=== PATIENT | female | born 1945 | race Caucasian/White ===

== ENCOUNTER → 2017-12-28 09:23 | Outpatient (CLI) | payer MEDICARE, SELFPAY ==
[2017-12-28 10:03] LABS: Basophils % 0.3 % (0.1-2.0); Eosinophils # 0.4 K/mm3 (0.0-0.4); Eosinophils % 3.7 % (0.1-12.0); Hematocrit 39.1 % (37.0-47.0); Hemoglobin 12.1 g/dL (12.2-16.2); Lymphocytes # 1.8 K/mm3 (0.7-4.5); Lymphocytes % 16.1 K/mm3 (10-50); Mean Corpuscular Hemoglobin 27.3 pg (27.0-31.2); Mean Corpuscular Volume 88.1 fl (81-99); Mean Platelet Volume 8.4 fl (7.4-10.4); Monocytes # 0.6 K/mm3 (0.1-1.0); Monocytes % 5.1 % (1.7-9.3); Neutrophils # 8.2 K/mm3 (1.8-7.8); Neutrophils % 74.8 % (37.0-80.0); Platelet Count 286 K/mm3 (142-424); Red Blood Count 4.44 M/mm3 (4.20-5.40); Red Cell Distribution Width 14.8 % (11.5-17.5); White Blood Count 10.9 K/mm3 (4.8-10.8)
[2017-12-28 10:34] LABS: Alanine Aminotransferase 35 U/L (12-78); Albumin Level 3.3 gm/dL (3.4-5.0); Albumin/Globulin Ratio 0.8 (1.1-1.8); Alkaline Phosphatase 70 U/L (46-116); Aspartate Amino Transferase 20 U/L (15-37); Bilirubin,Total 0.6 mg/dL (0.2-1.0); Blood Urea Nitrogen 8 mg/dL (7-18); Calcium 9.4 mg/dL (8.5-10.1); Carbon Dioxide 28 mmol/L (21.0-32.0); Chloride 101 mmol/L (98-107); Chol/HDL Ratio 2.8 (1-3.5); Cholesterol 148 mg/dL (140-200); Creatinine,Serum 0.69 mg/dL (0.55-1.02); Estimated Glomerular Filt Rate 84 ml/min (>60); Free Thyroxine Index 4.7 ug/dL (5.93-13.13); GFR (African American) 101 ML/MIN (>60); Globulin 3.9 gm/dl (1.3-3.2); Glucose 157 mg/dL (74-106); HDL Cholesterol 53 mg/dL (29-89); LDL Cholesterol 73 mg/dL (0-130); Sodium 137 mmol/L (136-145); Total Protein,Serum 7.2 gm/dL (6.4-8.2); Triglycerides 108 mg/dL (30-200); Triiodothryronine (T3) Uptake 36 % (31-39); VLDL Cholesterol 22 mg/dL (0-40)
[2017-12-28 10:58] LABS: Hemoglobin A1C 7.9 % (0.0-7.0)
[2017-12-30 09:45] LABS: Vitamin D 25 Hydroxy 42.8 ng/mL (30.0-100.0)
== END ==
PROVIDERS: PCP Internal Medicine Adolescent Medicine; Visit Provider Internal Medicine Adolescent Medicine
DX: E11.9 Type 2 diabetes mellitus without complications (principal); E78.5 Hyperlipidemia, unspecified; E03.9 Hypothyroidism, unspecified; E55.9 Vitamin D deficiency, unspecified; Z86.2 Personal history of diseases of the blood and blood-forming organs and certain disorders involving the immune mechanism
CPT/HCPCS: 36415; 80053; 80061; 82652; 83036; 84436; 84443; 84479; 85025

== ENCOUNTER → 2018-05-25 09:30 | Outpatient (CLI) | payer MEDICARE, SELFPAY ==
--- NOTE | 2018-05-25 09:34 | MM_ITS ---
MM Dig screening mamm BI w/CAD CAD Screening COMPARISON: Digital mammograms with CAD 03/10/2017 and 03/03/2015 INDICATION: There is no personal or family history of breast cancer. There has been previous biopsy right breast for benign disease. TECHNIQUE: Standard CC and MLO images were obtained. R2 CAD reviewed. FINDINGS: Minimal scattered fibroglandular densities are seen in the central portions of both breasts. There are multiple scattered benign-appearing microcalcifications and a few macrocalcifications in each breast most of which appear to be due to secretory disease. Stable minimal post biopsy scarring seen upper central portion right breast. There is a mole marker left breast. There is no suspicious lesion and is no suspicious cluster of microcalcifications. IMPRESSION: Fibrofatty parenchyma with no suspicious lesion seen BI-RADS Category: 2 Benign Finding(s) RECOMMENDED FOLLOW-UP: 1YR - 1 YEAR FOLLOW-UP (A letter has been sent to the patient regarding results of the study.)
== END ==
PROVIDERS: PCP Internal Medicine Adolescent Medicine; Visit Provider Internal Medicine Adolescent Medicine
DX: Z12.31 Encounter for screening mammogram for malignant neoplasm of breast (principal)
CPT/HCPCS: 77067

== ENCOUNTER → 2019-03-05 06:00 | Outpatient (CLI) | payer MEDICARE, SELFPAY ==
[2019-03-07 12:35] LABS: Occult Blood,Stool Negative (Negative)
== END ==
PROVIDERS: Visit Provider Internal Medicine Gastroenterology
DX: D50.9 Iron deficiency anemia, unspecified (principal)
CPT/HCPCS: 82272; G0328

== ENCOUNTER → 2019-03-06 06:30 | Outpatient (CLI) | payer MEDICARE, SELFPAY ==
[2019-03-07 12:35] LABS: Occult Blood,Stool Negative (Negative)
== END ==
PROVIDERS: Visit Provider Internal Medicine Gastroenterology
DX: D50.9 Iron deficiency anemia, unspecified (principal)
CPT/HCPCS: 82272; G0328

== ENCOUNTER → 2019-03-07 11:29 | Outpatient (CLI) | payer MEDICARE, SELFPAY ==
[2019-03-07 12:35] LABS: Occult Blood,Stool Negative (Negative)
== END ==
PROVIDERS: Visit Provider Internal Medicine Gastroenterology
DX: D50.9 Iron deficiency anemia, unspecified (principal)
CPT/HCPCS: 82272; G0328

== ENCOUNTER → 2019-05-22 10:36 | Outpatient (CLI) | payer MEDICARE, SELFPAY ==
--- NOTE | 2019-05-22 10:42 | MM_ITS ---
PROCEDURE: MM DIG SCREENING MAMM BI W/CAD CLINICAL INDICATION: SCREENING There is no personal or family history of breast cancer. There has been a previous biopsy right breast for benign disease. COMPARISON: [facility] DIG MAMM-SCREEN [facility] from 03/03/2015 [facility] DIG MAMM-SCREEN [facility] W/CAD from 03/10/2017 [facility] MM Dig screening mamm BI w/CAD from 05/25/2018 TECHNIQUE: Standard CC and MLO images and 3D Tomosynthesis was obtained. R2 CAD reviewed. FINDINGS: Scattered fibroglandular densities are seen in the central portions of both breast on a background of fatty breast parenchyma. There are scattered benign-appearing micro and macrocalcifications in each breast many of which are secondary to secretory disease. There is a mole marker left breast. There is no suspicious lesion and no suspicious microcalcifications. IMPRESSION: Fibrofatty parenchyma with no suspicious lesions seen BI-RAD Category: 2 Benign Finding(s) FOLLOW-UP: 1YR 1 Year Follow-up (A letter has been sent to the patient regarding results of the study.) Dictated by: Dr. Gary Johns MD 05/24/2019 11:[address] Gary Johns MD in [place] 05/24/2019 11:43
== END ==
PROVIDERS: PCP Internal Medicine Adolescent Medicine; Visit Provider Internal Medicine Adolescent Medicine
DX: Z12.31 Encounter for screening mammogram for malignant neoplasm of breast (principal)
CPT/HCPCS: 77063; 77067

== ENCOUNTER 2019-09-10 23:56 | Emergency (ER) | payer MEDICARE, SELFPAY ==
[2019-09-11 00:12] VITALS: BP 187/91; PULSE 86; RESP 17; TEMP 36.6; O2SAT 96; BMI 51.2
--- NOTE | 2019-09-11 00:19 | XR_ITS ---
PROCEDURE: XR SHOULDER LT MIN 2V CLINICAL INDICATION: fall Posttraumatic pain COMPARISON: No exams were available for comparison FINDINGS: There is a nondisplaced comminuted fracture involving the humeral head and non displaced transverse fracture of the humeral neck medially. No evidence of shoulder dislocation.. There is subacromial stenosis with slightly high-riding humeral head which may be seen with rotator cuff tear. MRI may confirm IMPRESSION: Nondisplaced fracture of the humeral head and neck Dictated by: Layo Thompson MD 09/11/2019 06:34 Electronically signed by Layo Thompson MD in [facility] 09/11/2019 06:34
--- NOTE | 2019-09-11 00:19 | XR_ITS ---
PROCEDURE: XR HUMERUS LT CLINICAL INDICATION: fall Posttraumatic pain COMPARISON: No exams were available for comparison FINDINGS: There is a nondisplaced fracture of the humeral neck and humeral head better seen on the shoulder film. The remaining humerus has an unremarkable appearance. IMPRESSION: Humeral head neck fracture nondisplaced Dictated by: Layo Thompson MD 09/11/2019 06:35 Electronically signed by Layo Thompson MD in [facility] 09/11/2019 06:35
[2019-09-11 01:08] VITALS: BP 144/73; PULSE 82; RESP 18; O2SAT 92
[2019-09-11 01:10] LABS: Basophils # 0.1 K/mm3 (0-0.2); Basophils % 0.5 % (0.1-2.0); Eosinophils # 0.4 K/mm3 (0.0-0.4); Eosinophils % 2.1 % (0.1-12.0); Hematocrit 34.1 % (37.0-47.0); Hemoglobin 10.7 g/dL (12.2-16.2); Lymphocytes # 1.7 K/mm3 (0.7-4.5); Lymphocytes % 8.7 % (10-50); Mean Corpuscular HGB Conc 31.3 g/dL (31.8-35.4); Mean Corpuscular Hemoglobin 26.6 pg (27.0-31.2); Mean Platelet Volume 8.3 fl (7.4-10.4); Monocytes # 0.8 K/mm3 (0.1-1.0); Monocytes % 4.2 % (1.7-9.3); Neutrophils # 16.6 K/mm3 (1.8-7.8); Neutrophils % 84.5 % (37.0-80.0); Platelet Count 338 K/mm3 (142-424); Red Blood Count 4.02 M/mm3 (4.20-5.40); Red Cell Distribution Width 15.4 % (11.5-17.5); White Blood Count 19.6 K/mm3 (4.8-10.8)
--- NOTE | 2019-09-11 01:10 | CT_ITS ---
PROCEDURE: CT SHOULDER LT WO CON CLINICAL HISTORY: confirm Xray. possible fracture Pain following injury, possible fracture on radiograph COMPARISON: XR SHOULDER LT MIN 2V from 09/11/2019 XR HUMERUS LT from 09/11/2019 TECHNIQUE: Axial images obtained with sagittal and coronal reformats. All CT scans at the facility use one or more dose reduction, viz: automated exposure control, ma/kV adjustment per patient size (including targeted exams where dose is matched to indication, i.e. head), or iterative reconstruction technique. FINDINGS: There is a nondisplaced mildly impacted comminuted fracture involving the humeral head at the greater tubercle and posterior neck of the humerus. No displacement. The humeral head is located. No other significant anomalies. IMPRESSION: Nondisplaced minimally impacted comminuted fracture of the humeral head and posterior aspect of the humeral neck Dictated by: Layo Thompson MD 09/11/2019 05:40 Electronically signed by Layo Thompson MD in [place] 09/11/2019 05:40
[2019-09-11 01:13] LABS: Alanine Aminotransferase 20 U/L (12-78); Albumin Level 4.4 g/dl (3.5-5.0); Albumin/Globulin Ratio 1.3 (1.1-1.8); Alkaline Phosphatase 86 U/L (38-126); Anion Gap 15.5 mEq/L (5-15); Aspartate Amino Transferase 28 U/L (14-36); Bilirubin,Total 0.3 mg/dl (0.2-1.3); Blood Urea Nitrogen 12 mg/dl (7-17); Calcium 9.4 mg/dl (8.4-10.2); Carbon Dioxide 24 mmol/L (22.0-30.0); Chloride 94 mmol/L (98-107); Creatinine Clearance Estimated 44 mL/min (50-200); Estimated Glomerular Filt Rate 82 ml/min (>60); GFR (African American) 99 ML/MIN (>60); Globulin 3.4 g/dL (1.3-3.2); Glucose 266 mg/dl (74-100); Potassium 4.5 mmoL/L (3.5-5.1); Sodium 129 mmol/L (136-145); Total Protein,Serum 7.8 g/dl (6.3-8.2)
[2019-09-11 01:15] LABS: MANUAL DIFFERENTIAL MANUAL DIFFERENTIAL (MANUAL DIFF)
[2019-09-11 01:36] LABS: Eosinophils % 4 % (0-3); Lymphocytes % 8 % (10-50); Monocytes % 1 % (2-9); Neutrophils % 87 % (42-76); Ovalocytes 1+; Platelet Estimate Normal; Total Cells Counted 100
[2019-09-11 01:37] LABS: Stomatocytes 1+
--- NOTE | 2019-09-11 01:58 | HMH.EDUPEXT ---
ED Disposition Clinical Impression: Shoulder fracture, left Qualifiers: Encounter type: initial encounter Fracture type: closed Qualified Code(s): S42.92XA - Fracture of left shoulder girdle, part unspecified, initial encounter for closed fracture Disposition: Home, Self-Care Condition on Discharge: Good Instructions: DI for Shoulder Fracture Additional Instructions: call ortho and pcp in am Prescriptions: Hydrocod/Acet 5/325 mg [[place] 5/325mg tablet] 1 tab PO Q6HP PRN #7 tab PRN Reason: Moderate To Severe Pain Prescription Printed Referrals: Russell Ramos MD [Primary Care Provider] - Mercy Jones MD [Physician] - - Critical Care Critical Care Time: No Attestation: On 09/10/19, the high probability of a clinically significant, sudden or life threatening deterioration of the following system(s) required my full and direct attention, intervention and personal management. The time I documented below is in addition to time spent performing reported procedures but includes the following listed in this critical care notation. Medical Decision Making - Medical Records Medical records reviewed: Yes: I reviewed the patient's medical records. - Abhay Inquiry Pt receiving controlled substance: No Vital Signs: 09/11/19 00:12 09/11/19 01:08 Temperature 97.9 F Temperature Source Oral Pulse Rate [Right Brachial] 86 82 Respiratory Rate 17 18 Blood Pressure [Right Arm] 187/91 H 144/73 H Blood Pressure Mean [Right Arm] 123 96 Blood Pressure Source [Right Arm] Automatic Cuff Blood Pressure Position [Right Arm] Sitting 02 Sat by Pulse Oximetry 96 92 L Oxygen Delivery Method Room Air Room Air - Lab Data Lab results reviewed: Yes: I reviewed the patient's lab results. Lab Results 09/11/19 00:48: WBC 19.6 H, RBC 4.02 L, Hgb 10.7 L, Hct 34.1 L, MCV 85.0, MCH 26.6 L, MCHC 31.3 L, RDW 15.4, Plt Count 338, MPV 8.3, Neut % (Auto) 84.5 H, Lymph % (Auto) 8.7 L, [place] % (Auto) 4.2, Eos % (Auto) 2.1, Baso % (Auto) 0.5, Neut # (Auto) 16.6 H, Lymph # (Auto) 1.7, [place] # (Auto) 0.8, Eos # (Auto) 0.4, Baso # (Auto) 0.1, Total Counted 100, Neutrophils % (Manual) 87 H, Lymphocytes % (Manual) 8 L, Monocytes % (Manual) 1 L, Eosinophils % (Manual) 4 H, Platelet Estimate Normal, Ovalocytes 1+, Stomatocytes 1+ 09/11/19 00:48: Sodium 129 L, Potassium 4.5, Chloride 94 L, Carbon Dioxide 24, Anion Gap 15.5 H, BUN 12, Creatinine 0.70, Estimated Creat Clear 44, Estimated GFR 82, Est GFR ( Amer) 99, Glucose 266 H, Calcium 9.4, Total Bilirubin 0.3, AST 28, ALT 20, Alkaline Phosphatase 86, Total Protein 7.8, Albumin 4.4, Globulin 3.4 H, Albumin/Globulin Ratio 1.3 Result diagrams: 09/11/19 00:48 09/11/19 00:48 Orders (Tests/Meds): ED MEDICATIONS Discontinued Medications Generic Name Dose Route Start Last Admin Trade Name Emilia PRN Reason Stop Dose Admin Fentanyl Citrate 50 mcg 09/11/19 01:12 09/11/19 01:25 Fentanyl 100mcg/2ml Vial IV 09/11/19 01:13 50 mcg ONCE ONE Administration Morphine Sulfate 4 mg 09/11/19 00:24 09/11/19 00:34 Morphine 4mg/Ml Syringe IV 09/11/19 00:25 4 mg ONCE ONE Administration Ondansetron HCl 4 mg 09/11/19 00:25 09/11/19 00:34 Zofran 4mg/2ml Vial IV 09/11/19 00:26 4 mg ONCE ONE Administration ORDERS Category Date Time Status CT shoulder LT wo con Stat Cat Scan 09/11/19 01:10 Ordered XR humerus LT Stat Exams 09/11/19 00:19 Taken XR shoulder LT min 2V Stat Exams 09/11/19 00:19 Taken - Radiology Data #1 Image(s): Shoulder, Humerus Image Reviewed: Yes I reviewed the patient's radiology image Preliminary Findings: Abnormal - CT Data CT Scan: Other (lt shoulder ) Time Received: 02:[address] Reviewed: Yes: I have viewed the radiologist's interpretation Preliminary Findings: Abnormal (fx ) Upper Extremity HPI - General Chief Complaint: Extremity Injury, Upper Stated Complaint: AO 09/10/19 22:30 fell injury left shoulder Time
--- NOTE | 2019-09-11 02:03 | PC.NURSE ---
shoulder immobilizer applied to pt left shoulder. peripheral pulses reassessed before and after application.
[2019-09-11 02:29] VITALS: BP 158/62; PULSE 66; RESP 17; TEMP 36.6; O2SAT 97
== END 2019-09-11 02:33 | disposition home or self-care (01) ==
PROVIDERS: Emergency Provider Emergency Medicine; PCP Internal Medicine Adolescent Medicine
DX: S42.295A Other nondisplaced fracture of upper end of left humerus, initial encounter for closed fracture (principal); W01.0XXA Fall on same level from slipping, tripping and stumbling without subsequent striking against object, initial encounter; Y92.019 Unspecified place in single-family (private) house as the place of occurrence of the external cause; E11.9 Type 2 diabetes mellitus without complications; I10 Essential (primary) hypertension; J44.9 Chronic obstructive pulmonary disease, unspecified; K21.9 Gastro-esophageal reflux disease without esophagitis; E78.5 Hyperlipidemia, unspecified; Z87.891 Personal history of nicotine dependence
CPT/HCPCS: 73030; 73060; 73200; 80053; 85007; 85025; 96374; 96375; 96376; 99283; 99284; J2405

== ENCOUNTER → 2019-09-27 08:38 | Outpatient (CLI) | payer MEDICARE, SELFPAY ==
--- NOTE | 2019-09-27 08:48 | XR_ITS ---
PROCEDURE: XR SHOULDER LT MIN 2V CLINICAL INDICATION: shoulder fx fu COMPARISON: CT SHOULDER LT WO CON from 09/11/2019 XR SHOULDER LT MIN 2V from 09/11/2019 FINDINGS: The nondisplaced fracture involving the humeral head and greater tuberosity is stable and unchanged in alignment from the regional film. No significant callus formation is seen as yet. The clavicle and AC joint appear normal. IMPRESSION: Stable nondisplaced fracture humeral head as noted Dictated by: Dr. Gary Johns MD 09/27/2019 11:[address] Gary Johns MD in [place] 09/27/2019 11:15
== END ==
PROVIDERS: PCP Internal Medicine Adolescent Medicine; Visit Provider Orthopaedic Surgery
DX: S42.92XA Fracture of left shoulder girdle, part unspecified, initial encounter for closed fracture (principal)
CPT/HCPCS: 73030

== ENCOUNTER → 2019-10-15 10:11 | Outpatient (CLI) | payer MEDICARE, SELFPAY ==
--- NOTE | 2019-10-15 10:14 | XR_ITS ---
PROCEDURE: XR SHOULDER LT MIN 2V CLINICAL INDICATION: proximal humerus FX COMPARISON: No exams were available for comparison FINDINGS: Minimally displaced avulsion fracture involves the greater tubercle of the proximal humerus. There is some developing callus formation inferiorly. The humeral head is located. IMPRESSION: Healing proximal humeral fracture Dictated by: Layo Thompson MD 10/15/2019 11:55 Electronically signed by Layo Thompson MD in [place] 10/15/2019 11:55
== END ==
PROVIDERS: PCP Internal Medicine Adolescent Medicine; Visit Provider Orthopaedic Surgery
DX: S42.92XA Fracture of left shoulder girdle, part unspecified, initial encounter for closed fracture (principal)
CPT/HCPCS: 73030

== ENCOUNTER 2019-11-05 11:00 | Outpatient (RCR) | payer MEDICARE, SELFPAY ==
--- NOTE | 2019-10-22 12:14 | HMH.OTOPEV ---
OT Inpatient Evaluation Rehab OT Outpatient Eval Start: 10/22/19 11:11 Freq: Status: Active Protocol: Document 10/22/19 11:58 RONALDOFRANCO (Rec: 10/22/19 12:14 JATINDER [id number]) Electronically Signed By Pamela Kaufman OT 10/22/19 11:58 Outpatient Therapy Subjective History Subjective History 74 year old female referred to OP OT services after having a fall at home when attempting to kill a bug and slipped on the hardwood floor resulting in proximal humerus fx on September 10 2019. Ortho did not complete surgery and patient is to wear a sling unless exer or properly position during tasks. Chief Complaint Pain Symptom Type Ache Symptoms Relieved By Ice Symptoms Aggravated By Physical Activity Prior Functional Limitations None Current Functional Limitations Reaching,Lifting,Housework, Dressing,Driving,Recreation Activity Symptom Description Constant and Continuous Level of pain today (0-10) 4 Pain scale - at its best (0-10) 4 Pain scale - at its worst (0-10) 4 Shoulder/Elbow Eval Shoulder Objective Measurements Shoulder ROM Left Shoulder ROM Limitations Pain Shoulder Abduction Active Range of 80 Motion (degrees) Shoulder Flexion Active Range of Motion 60 (degrees) Query Text: Shoulder External Rotation Active Range 50 of Motion (degrees) Shoulder Internal Rotation Active Range 60 of Motion (degrees) pain with active ROM shoulder exam left standard Shoulder MMT Shoulder Abduction Strength Grade 3- Fair- Shoulder Flexion Strength Grade 3- Fair- Shoulder Horizontal Abduction Strength 3- Fair- Grade Shoulder Horizontal Adduction Strength 3- Fair- Grade Shoulder External Rotation Strength 3- Fair- Grade Shoulder Internal Rotation Strength 3- Fair- Grade Shoulder Strength Patient Testing Sitting Position Elbow Objective Measurements Outpatient Therapy Plan of Care Treatment Plan May Include Therapeutic Exercise Including Home Yes Exercise Program Manual Therapy Techniques Yes Therapeutic Activities to Return to Yes Previous Functional/Work Level Thermal Modalities Yes Electrical Stimulation Yes Ultrasound/Phonophoresis Y
== END 2019-11-05 11:05 | disposition home or self-care (01) ==
LOC: OT 11:00
PROVIDERS: PCP Internal Medicine Adolescent Medicine; Visit Provider Orthopaedic Surgery
DX: S42.202D Unspecified fracture of upper end of left humerus, subsequent encounter for fracture with routine healing (principal)
CPT/HCPCS: 97010; 97014; 97033; 97035; 97110; 97165; 97530; G0283

== ENCOUNTER → 2019-11-09 09:39 | Outpatient (CLI) | payer MEDICARE, SELFPAY ==
--- NOTE | 2019-11-09 09:43 | XR_ITS ---
PROCEDURE: XR SHOULDER LT MIN 2V CLINICAL INDICATION: proximal humerus FX Follow-up. COMPARISON: CT SHOULDER LT WO CON from 09/11/2019 XR SHOULDER LT MIN 2V from 09/11/2019 XR SHOULDER LT MIN 2V from 09/27/2019 XR SHOULDER LT MIN 2V from 10/15/2019 FINDINGS: Redemonstrated mildly displaced/impacted avulsion fracture involving the greater tubercle of the proximal humerus with some developing callus formation more inferiorly. There is also likely a nondisplaced nearly healed transverse fracture of the neck of the left humerus present. There is possible disuse bony demineralization of the proximal left humerus. The visualized left clavicle, acromion and scapula appears intact. Other findings:None. IMPRESSION: 1. Minimally displaced/impacted comminuted healing fractures of the left greater tubercle and humeral neck are seen. Dictated by: Brandan Bedoya 11/09/2019 10:35 Electronically signed by Brandan Bedoya in [facility] 11/09/2019 10:35
== END ==
PROVIDERS: PCP Internal Medicine Adolescent Medicine; Visit Provider Orthopaedic Surgery
DX: S42.92XA Fracture of left shoulder girdle, part unspecified, initial encounter for closed fracture (principal)
CPT/HCPCS: 73030

== ENCOUNTER → 2019-12-03 12:47 | Outpatient (CLI) | payer MEDICARE, SELFPAY ==
--- NOTE | 2019-12-03 12:49 | XR_ITS ---
PROCEDURE: XR DEXA AXIAL SKELETON CLINICAL HISTORY: OSTEOPENIA COMPARISON: CR BONE3 BONE DENSITOMETRY(HIP:LT SPINE from 05/25/2016 FINDINGS: The right hip BMD is 0.800 with a t-score of -1.2. The left hip BMD is 0.791 with a t-score of -1.2. The lumbar spine BMD is 1.204 with a t-score of 1.4. Previously the lowest density was in the left femoral with a T-score -1.5. The bone mineral density has slightly improved since then. IMPRESSION: This patient is considered osteopenic according to the World Health Organization criteria. Bone density is between 10 and 25 percent below young normal . Fracture risk is moderate. Treatment is advised. Based on these results of follow-up exam is recommended in 2 years Dictated by: Layo Thompson MD 12/05/2019 06:17 Layo Thompson MD in [facility] 12/05/2019 06:17
== END ==
PROVIDERS: PCP Internal Medicine Adolescent Medicine; Visit Provider Internal Medicine Adolescent Medicine
DX: M85.89 Other specified disorders of bone density and structure, multiple sites (principal)
CPT/HCPCS: 77080

== ENCOUNTER → 2019-12-10 10:28 | Outpatient (CLI) | payer MEDICARE, SELFPAY ==
--- NOTE | 2019-12-10 10:36 | XR_ITS ---
PROCEDURE: XR SHOULDER LT MIN 2V CLINICAL INDICATION: proximal humerus fracture Follow-up fracture COMPARISON: CR XR SHOULDER LT MIN 2V from 09/11/2019 CR XR SHOULDER LT MIN 2V from 09/27/2019 CR XR SHOULDER LT MIN 2V from 10/15/2019 CR XR SHOULDER LT MIN 2V from 11/09/2019 FINDINGS: Healing comminuted fractures present involving the neck the humerus and the avulsion fracture of the greater tuberosity. There is good alignment in the humeral head is located. Callus formation is present. Minimal osteoarthritic change of the glenohumeral joint. Other findings:None. IMPRESSION: Healing left humeral neck and greater tuberosity avulsion fracture Dictated by: Layo Thompson MD 12/10/2019 11:11 Layo Thompson MD in [facility] 12/10/2019 11:11
== END ==
PROVIDERS: PCP Internal Medicine Adolescent Medicine; Visit Provider Orthopaedic Surgery
DX: S42.209A Unspecified fracture of upper end of unspecified humerus, initial encounter for closed fracture (principal)
CPT/HCPCS: 73030